=== PATIENT | female | born 1950 | race African-American/Black ===

== ENCOUNTER 2017-02-20 08:10 | Day surgery (SDC) | payer BC, OTHER ==
[2017-02-20] MEDS ORDERED: TETRACAINE 0.5% OPHTH 1 DOSE AFFEYE ONE ×3 (10:00→12:07)
[2017-02-20] MEDS ORDERED: VIGAMOX 0.5% OPHTH 1 DOSE AFFEYE ONE ×6 (10:05→12:27)
[2017-02-20] MEDS ORDERED: PROLENSA OPHTH 1 DOSE AFFEYE ONE (10:16)
[2017-02-20] MEDS ORDERED: ALPHAGAN-P OPHTH 1 DOSE AFFEYE ONE (10:17)
[2017-02-20] MEDS ORDERED: CYCLOGYL 1% OPHTH 1 DOSE OP ONE ×3 (10:18→10:20)
[2017-02-20] MEDS ORDERED: AK-DILATE 2.5% OPHTH 1 DOSE OP ONE ×3 (10:18→10:20)
[2017-02-20] MEDS ORDERED: MYDRIACIL OPHTH 1 DOSE AFFEYE ONE ×3 (10:18→10:20)
[2017-02-20] MEDS ORDERED: NS 500 ML IV 500 ML IV ONE (10:30)
[2017-02-20] MEDS ORDERED: BETADINE OPHTH SOLN 5% EACHEYE ONE (12:05)
[2017-02-20] MEDS ORDERED: ADRENALINE CHL INJ IJ ONE (12:07)
[2017-02-20] MEDS ORDERED: DUOVISC IO ONE (12:07)
[2017-02-20] MEDS ORDERED: XYLOCAINE-MPF 1% IJ ONE (12:07)
[2017-02-20] MEDS ORDERED: BSS OPHTH (PLAIN) 500 ML with VANCOMYCIN HCL 500 MG VIAL 25 MG, ADRENALINE CHL INJ 1 MG IR ONE ×6 (12:08)
[2017-02-20] MEDS ORDERED: VISCOAT 0.5 ML IO ONE (12:21)
[2017-02-20] MEDS ORDERED: VERSED ONE (13:45)
[2017-02-20] MEDS ORDERED: DIPRIVAN VIAL ONE (13:45)
[2017-02-20 16:21] VITALS: BP 121/78
== END 2017-02-20 12:52 | disposition home or self-care (01) ==
LOC: SURG1 08:10
PROVIDERS: ATTEND Ophthalmology
PROC: 08DK3ZZ Extraction of Left Lens, Percutaneous Approach (ICD-10-PCS; principal; 2017-02-20 17:30)
PROC: 08RK3JZ Replacement of Left Lens with Synthetic Substitute, Percutaneous Approach (ICD-10-PCS; principal; 2017-02-20 17:30)
DX: H25.12 Age-related nuclear cataract, left eye (principal); H25.012 Cortical age-related cataract, left eye
CPT/HCPCS: A4217; J0170; J2250; J3370; J3490

== ENCOUNTER 2017-03-13 07:20 | Day surgery (SDC) | payer BC, OTHER ==
[2017-03-13] MEDS ORDERED: TETRACAINE 0.5% OPHTH 1 DOSE AFFEYE ONE ×4 (07:50→10:21)
[2017-03-13] MEDS ORDERED: VIGAMOX 0.5% OPHTH 1 DOSE AFFEYE ONE ×5 (07:51→10:29)
[2017-03-13] MEDS ORDERED: NS 500 ML IV 500 ML IV ONE (07:58)
[2017-03-13] MEDS ORDERED: PROLENSA OPHTH 1 DOSE AFFEYE ONE (08:02)
[2017-03-13] MEDS ORDERED: ALPHAGAN-P OPHTH 1 DOSE AFFEYE ONE (08:03)
[2017-03-13] MEDS ORDERED: CYCLOGYL 1% OPHTH 1 DOSE OP ONE ×4 (08:04→08:07)
[2017-03-13] MEDS ORDERED: MYDRIACIL OPHTH 1 DOSE AFFEYE ONE ×4 (08:04→08:07)
[2017-03-13] MEDS ORDERED: AK-DILATE 2.5% OPHTH 1 DOSE OP ONE ×4 (08:04→08:07)
[2017-03-13] MEDS ORDERED: VERSED ONE ×3 (08:44→15:58)
[2017-03-13] MEDS ORDERED: BETADINE OPHTH SOLN 5% EACHEYE ONE (10:08)
[2017-03-13] MEDS ORDERED: BSS OPHTH (PLAIN) 500 ML with VANCOMYCIN HCL 500 MG VIAL 25 MG, ADRENALINE CHL INJ 1 MG IR ONE ×6 (10:15)
[2017-03-13] MEDS ORDERED: ADRENALINE CHL INJ IJ ONE ×2 (10:15→10:21)
[2017-03-13] MEDS ORDERED: XYLOCAINE-MPF 1% IJ ONE ×2 (10:15→10:21)
[2017-03-13] MEDS ORDERED: DUOVISC IO ONE ×2 (10:15→10:21)
[2017-03-13 10:52] VITALS: BP 126/73
== END 2017-03-13 10:54 | disposition home or self-care (01) ==
LOC: SURG1 07:20
PROVIDERS: ATTEND Ophthalmology
PROC: 08DJ3ZZ Extraction of Right Lens, Percutaneous Approach (ICD-10-PCS; principal; 2017-03-13 11:15)
PROC: 08RJ3JZ Replacement of Right Lens with Synthetic Substitute, Percutaneous Approach (ICD-10-PCS; principal; 2017-03-13 11:15)
DX: H25.11 Age-related nuclear cataract, right eye (principal); H25.011 Cortical age-related cataract, right eye
CPT/HCPCS: A4217; J0170; J2250; J3370